=== PATIENT | male | born 1970 | race American Indian/Alaskan Native ===

== ENCOUNTER 2016-08-29 22:41 | Emergency (ER) | payer SELFPAY ==
[2016-08-29 23:48] LABS: Basophils % (Auto) 0.6 % (0.0-1.8); Eosinophils % (Auto) 1.7 % (0.0-4.3); Hematocrit 46.6 % (35.5-45.6); Hemoglobin 15.5 gm/dl (11.8-15.2); Mean Corpuscular HGB Conc 33 % (32-34); Mean Corpuscular Hemoglobin 30 pg (28-32); Mean Corpuscular Volume 90 fl (84-94); Platelet Count 219 K/mm3 (140-440); Red Blood Count 5.19 M/mm3 (3.65-5.03); Red Cell Distribution Width 13.5 % (13.2-15.2); White Blood Count 6.9 K/mm3 (4.5-11.0)
[2016-08-30] LABS: Alanine Aminotransferase 25 units/L (7-56); Albumin/Globulin Ratio 1.3 %; Alkaline Phosphatase 79 units/L (35-129); Anion Gap 19 mmol/L; BUN/Creatinine Ratio 9.16; Blood Urea Nitrogen 11 mg/dL (9-20); Calcium 8.8 mg/dL (8.4-10.2); Carbon Dioxide 23 mmol/L (22-30); Chloride 98.9 mmol/L (98-107); Glucose 192 mg/dL (75-100); Lipase 49 units/L (13-60); Potassium 4.2 mmol/L (3.6-5.0); Sodium 137 mmol/L (137-145); Total Protein 7.2 g/dL (6.3-8.2)
[2016-08-30 01:30] LABS: Bacteria,Urine 1+ /HPF (Negative); Bilirubin,Urine NEG (Negative); Blood,Urine MOD (Negative); Ketones,Urine NEG (Negative); Leukocyte Esterase,Urine MOD (Negative); Mucus,Urine FEW /HPF; Nitrite,Urine NEG (Negative)
[2016-08-30] MEDS ORDERED: ROCEPHIN IM ONE (04:51)
[2016-08-30] MEDS ORDERED: ZITHROMAX PO ONE (04:51)
[2016-08-30] MEDS ORDERED: XYLOCAINE 1% MPF 5 mL INFILTRATI ONE (04:51)
--- NOTE | 2016-08-30 04:53 | Emergency Department Report ---
ED Male HPI - General Chief complaint: Urogenital-Male Stated complaint: BLOOD IN URINE Time Seen by Provider: 08/30/16 04:22 Source: patient Mode of arrival: Ambulatory Limitations: No Limitations - History of Present Illness Initial comments: 45-year-old male past medical history obesity presents with complaint of 3-4 days of urethral discharge. Patient complains of mild dysuria. Denies any nausea or vomiting testicular pain no fever or chills denies any rash in groin region. States he has had chlamydia multiple times in the past. Awake alert and oriented 3. Denies any flank pain Onset/Timin -: days(s) Location: penis Severity: mild Quality: burning Worsens with: urination new medication discharge (yellowish discharge from penile tip), dysuria - Related Data Previous Rx's Medication Instructions Recorded Last Taken Type Ciprofloxacin HCl [Ciprofloxacin 500 mg PO Q12H #14 tab 08/30/16 Unknown Rx TAB] Naproxen [Naprosyn TAB] 500 mg PO BID PRN #20 tablet 08/30/16 Unknown Rx Allergies Allergy/AdvReac Type Severity Reaction Status Date / Time No Known Allergies Allergy Verified 08/29/16 23:14 ED Review of Systems ROS: Stated complaint: BLOOD IN URINE Other details as noted in HPI Constitutional: denies: chills, fever Eyes: denies: eye pain, eye discharge, vision change ENT: denies: ear pain, throat pain Respiratory: denies: cough, shortness of breath, wheezing Cardiovascular: denies: chest pain, palpitations Endocrine: no symptoms reported Gastrointestinal: denies: abdominal pain, nausea, diarrhea Genitourinary: dysuria, discharge. denies: urgency Musculoskeletal: denies: back pain, joint swelling, arthralgia Skin: denies: rash, lesions Neurological: denies: headache, weakness, paresthesias Psychiatric: denies: anxiety, depression Hematological/Lymphatic: denies: easy bleeding, easy bruising ED Past Medical Hx - Past Medical History Previous Medical History?: No - Surgical History Past Surgical History?: No - Social History Smoking Status: Never Smoker Substance Use Type: None - Medications Home Medications: Home Medications Medication Instructions Recorded Confirmed Last Taken Type Ciprofloxacin HCl [Ciprofloxacin 500 mg PO Q12H #14 tab 08/30/16 Unknown Rx TAB] Naproxen [Naprosyn TAB] 500 mg PO BID PRN #20 tablet 08/30/16 Unknown Rx ED Physical Exam - General Limitations: No Limitations General appearance: alert, in no apparent distress - Head Head exam: Present: atraumatic, normocephalic - Eye Eye exam: Present: normal appearance, PERRL, EOMI - ENT ENT exam: Present: mucous membranes moist - Neck Neck exam: Present: normal inspection - Respiratory Respiratory exam: Present: normal lung sounds bilaterally. Absent: respiratory distress - Cardiovascular Cardiovascular Exam: Present: regular rate, normal rhythm. Absent: systolic murmur, diastolic murmur, rubs, gallop - GI/Abdominal GI/Abdominal exam: Present: soft, normal bowel sounds - Rectal Rectal exam: Present: deferred - exam: Present: urethral discharge - Extremities Exam Extremities exam: Present: normal inspection, full ROM - Back Exam Back exam: Present: normal inspection - Neurological Exam Neurological exam: Present: alert, oriented X3, CN II-XII intact, normal gait - Psychiatric Psychiatric exam: Present: normal affect, normal mood - Skin Skin exam: Present: warm, dry, intact, normal color. Absent: rash ED Course Vital Signs 08/29/16 23:15 Temperature 98.6 F Pulse Rate 92 H Respiratory 20 Rate Blood Pressure 134/86 [Right] O2 Sat by Pulse 100 Oximetry ED Medical Decision Making - Lab Data Result diagrams: 08/29/16 23:24 08/29/16 23:24 - Medical Decision Making A/P: Urethritis, UTI 1-empiric treatment with ceftriaxone and azithromycin 2-patient has large leuks and the urine will give empiric course of ciprofloxacin to cover for UTI 3-follow up with primary care Critical care attestation.: If time is entered above; I have spent that time in minutes in the direct care of this critically ill patient, excluding procedure time. ED Disposition Clinical Impression: Urethritis Disposition: DISCHARGED TO HOME OR SELFCARE Is pt being admited?: No Does the pt Need Aspirin: No Condition: Stable Instructions: Nonspecific Urethritis in Men (ED), Urinary Tract Infection in Men (ED) Prescriptions: Ciprofloxacin HCl [Ciprofloxacin TAB] 500 mg PO Q12H #14 tab Naproxen [Naprosyn TAB] 500 mg PO BID PRN #20 tablet PRN Reason: Pain Referrals: [facility] [Outside] - 3-5 Days Forms: STI Treatment and Prevention Time of Disposition: 04:53
[2016-08-30 05:37] VITALS: BP 138/90
== END 2016-08-30 05:38 | disposition home or self-care (01) ==
LOC: ED 22:41
DX: N34.2 Other urethritis (principal)
CPT/HCPCS: 36415; 80053; 81001; 83690; 85025; 96372; 99283; J0696